=== PATIENT | male | born 1965 | race Caucasian/White ===

== ENCOUNTER 2016-08-13 07:27 | Day surgery (SDC) | payer OTHER ==
[2016-08-13] MEDS ORDERED: ceFAZolin 2 GM/50 ML 50 ML IV ONE (07:30)
[2016-08-13] MEDS ORDERED: ACETAMINOPHEN 1,000 MG/100 ML 100 ML IV ONE (07:30)
[2016-08-13] MEDS ORDERED: CELECOXIB 100 MG CAPSULE PO ONE (07:30)
[2016-08-13] MEDS ORDERED: LACTATED RINGERS 1,000 ML IV ONE (07:51)
[2016-08-13] MEDS ORDERED: BUPIVACAINE 0.25% PF 30 ML VIAL SUBQ ONE ×2 (09:54)
[2016-08-13] MEDS ORDERED: MIDAZOLAM 2 MG/2 ML VIAL IVP ONE (10:00)
[2016-08-13] MEDS ORDERED: LIDOCAINE-MPF 0.5% 50 ML VIAL IM ONE (10:00)
[2016-08-13] MEDS ORDERED: fentaNYL 100 MCG/2 ML VIAL IVP ONE (10:00)
== END 2016-08-13 07:28 | disposition home or self-care (01) ==
PROC: 0LN80ZZ Release Left Hand Tendon, Open Approach (ICD-10-PCS; principal; 2016-08-13 09:10)
DX: M65.332 Trigger finger, left middle finger (principal); I10 Essential (primary) hypertension; G47.30 Sleep apnea, unspecified; K21.9 Gastro-esophageal reflux disease without esophagitis; G25.81 Restless legs syndrome
CPT/HCPCS: 26055; A9270; J0131; J0690; J3490; J7120

== ENCOUNTER 2018-07-25 06:54 | Outpatient (CLI) | payer OTHER | END 2018-07-25 06:55 | disposition home or self-care (01) | LOC: DI 06:54 | PROVIDERS: ATTEND Nurse Practitioner Family | DX: M54.16 Radiculopathy, lumbar region (principal); Z53.9 Procedure and treatment not carried out, unspecified reason ==